=== PATIENT | female | born 1935 | race African-American/Black ===

== ENCOUNTER 2017-01-22 06:23 | Day surgery (SDC) | payer OTHER ==
[~2017-01-22] VITALS: Ht 161.3 cm; Wt 75.0 kg
[2017-01-22] VITALS (9 sets, daily range): BP systolic 110–186; BP diastolic 66–97; PULSE 68–93; RESP 18–20; TEMP 97.9–98.3; O2SAT 95–99
[~2017-01-22 06:23] MED LIST: AMLO10TA2 PO; ASPI1TAB69 PO; CALCCHW9 CHEW; LEVO75TA3 PO; LOSA100T3 PO; METF500T PO; Potassium PO; SIMV20TA PO; VITA10003 PO
[2017-01-22] MEDS ORDERED: SODIUM CHLOR 0.9% 1000 ML IV SCH (07:30)
[2017-01-22] MEDS ORDERED: fentaNYL CITRATE 250 MCG/5 ML AMP ONE (08:01)
[2017-01-22] MEDS ORDERED: MIDAZOLAM HCL 5 MG/5 ML VIAL ONE (08:01)
[2017-01-22] MEDS ORDERED: HYDROmorphone HCL 2 MG TAB PO PRN (09:15)
[2017-01-22 09:35] LABS: AUTOMATED NEUTROPHIL # 4.5 TH/MM3 (1.8-7.7); BASOPHIL # 0.1 TH/MM3 (0-0.2); BASOPHIL % 0.9 % (0.0-2.0); EOSINOPHIL # 0.1 TH/MM3 (0-0.4); EOSINOPHIL % 1.8 % (0.0-4.0); HEMATOCRIT 33.8 % (35.0-46.0); HEMO FLAGS DIFF FINAL; LYMPH % 19.9 % (9.0-44.0); LYMPHOCYTE # 1.2 TH/MM3 (1.0-4.8); MEAN CORPUSCULAR HEMOGLOBIN 29.4 PG (27.0-34.0); MEAN CORPUSCULAR HGB CONC 34.6 % (32.0-36.0); MONO % 5.9 % (0.0-8.0); NEUT % 71.5 % (16.0-70.0); PLATELET COUNT 250 TH/MM3 (150-450); RED BLOOD COUNT 3.97 MIL/MM3 (4.00-5.30); RED CELL DISTRIBUTION WIDTH 14.1 % (11.6-17.2); WHITE BLOOD COUNT 6.3 TH/MM3 (4.0-11.0)
--- NOTE | 2017-01-22 09:43 | RADRPT ---
EXAM DATE/TIME: 01/22/2017 08:15 [facility] COMPARISON: No previous studies available for comparison. INDICATIONS : Right renal mass. SEDATION TIME: 30 minutes BIOPSY SITE: Right MEDICATION(S): 1.) 2 mg midazolam (Versed) IV 2.) 100 mcg fentanyl (Sublimaze) IV DEVICE(S): 1.) 20 gauge Temno core biopsy needle MEDICAL HISTORY : None. SURGICAL HISTORY : Appendectomy. Hysterectomy. ENCOUNTER: Initial ACUITY: 1 day PAIN SCORE: 0/10 LOCATION: Right abdomen A total of four core specimen(s) were obtained and sent to the laboratory for pathologic evaluation. PROCEDURE: 1. CT guided renal biopsy. 2. Conscious sedation with continuous EKG and oximetry monitoring. 3. EKG and oximetry remained stable throughout the procedure. Prior to the procedure informed consent was obtained. Any appropriate prior imaging studies were rev iewed. Using automated exposure control and adjustment of the mA and/or kV according to patient size, radiat ion dose was kept as low as reasonably achievable to obtain optimal diagnostic quality images. The site was prepped in a sterile fashion. Full sterile technique was used, including cap, mask, manuela rile gloves and gown and a large sterile sheet. Hand hygiene and 2% chlorhexidine and/or betadine/al cohol prep was utilized per protocol for cutaneous antisepsis. The skin and subcutaneous tissues wer e infiltrated with local anesthetic solution. With CT guidance the previously identified target was localized. Biopsy was performed using the presc ribed needle as above. Adequate hemostasis was obtained with compression at the puncture site. Follow-up CT scan reveals minimal adjacent hemorrhage posteriorly in the retroperitoneal fat. The patient tolerated the procedure well and there were no complications. The patient was returned to the Radiology Outpatient Unit in stable condition. CONCLUSION: Successful CT guided biopsy of the mass in the right kidney. Minimal adjacent hemorrhage. Ambrosio Sargent MD on January 22, 2017 at 9:40 Board Certified Radiologist. This report was verified electronically.
[2017-01-22 11:37] LABS: AUTOMATED NEUTROPHIL # 4.8 TH/MM3 (1.8-7.7); BASOPHIL # 0.1 TH/MM3 (0-0.2); BASOPHIL % 0.9 % (0.0-2.0); EOSINOPHIL # 0.1 TH/MM3 (0-0.4); EOSINOPHIL % 1.7 % (0.0-4.0); HEMATOCRIT 34.4 % (35.0-46.0); HEMO FLAGS DIFF FINAL; LYMPH % 22.7 % (9.0-44.0); LYMPHOCYTE # 1.6 TH/MM3 (1.0-4.8); MEAN CELL VOLUME 85.2 FL (80.0-100.0); MEAN CORPUSCULAR HEMOGLOBIN 28.8 PG (27.0-34.0); MEAN CORPUSCULAR HGB CONC 33.8 % (32.0-36.0); MONO % 4.8 % (0.0-8.0); NEUT % 69.9 % (16.0-70.0); PLATELET COUNT 256 TH/MM3 (150-450); RED BLOOD COUNT 4.04 MIL/MM3 (4.00-5.30); RED CELL DISTRIBUTION WIDTH 14.2 % (11.6-17.2); WHITE BLOOD COUNT 6.8 TH/MM3 (4.0-11.0)
[2017-03-21] MEDS ORDERED: CALC600T PO (11:20)
[2017-03-21] MEDS ORDERED: ASPI81TA5 PO (11:20)
== END 2017-01-22 14:30 | disposition home or self-care (01) ==
LOC: HRAD 06:23 → HRIP 06:39 → HRAD 14:30
PROVIDERS: ATTEND Urology
DX: D30.00 Benign neoplasm of unspecified kidney (principal); Z87.891 Personal history of nicotine dependence
CPT/HCPCS: 50200; 77012; 85025; 88305; 88341; 88342; J2250; J3010; J7030

== ENCOUNTER 2017-02-15 06:27 | Day surgery (SDC) | payer OTHER ==
[~2017-02-15] VITALS: Ht 160 cm; Wt 74.5 kg
[2017-02-15 06:41] VITALS: BP 175/95; PULSE 82; RESP 20; TEMP 97.9; O2SAT 99
[2017-02-15] MEDS ORDERED: SODIUM CHLOR 0.9% 1000 ML INJ 1,000 ML IV SCH (07:00)
--- NOTE | 2017-02-15 09:17 | RADRPT ---
EXAM DATE/TIME: 02/15/2017 08:42 [facility] COMPARISON: No previous studies available for comparison. INDICATIONS : Evaluate for left renal mass biopsy. FINDINGS: The patient has been consulted for biopsy of a 7 mm left renal mass which is too small for biopsy. 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 If there is the need for m ore definitive evaluation of the left renal mass then contrast-enhanced MRI is recommended. As Dr. Mcgee was not available for personal consultation to discuss the need for biopsy the procedu re is to be postponed until he returns. CONCLUSION: 1. Left renal biopsy not performed. Please see above. 1. Sandeep Kennedy MD on February 15, 2017 at 9:13 Board Certified Radiologist. This report was verified electronically.
[2017-03-21] MEDS ORDERED: CALC600T PO (11:20)
[2017-03-21] MEDS ORDERED: ASPI81TA5 PO (11:20)
== END 2017-02-15 09:55 | disposition home or self-care (01) ==
LOC: HRAD 06:27 → HRIP 06:28 → HRAD 09:55
PROVIDERS: ATTEND Urology
DX: N28.89 Other specified disorders of kidney and ureter (principal)